=== PATIENT | male | born 1985 | race Caucasian/White ===

== ENCOUNTER 2022-07-15 21:07 | Emergency (ER) | payer OTHER, SELFPAY ==
[2022-07-15 21:16] VITALS: BP 143/91; PULSE 87; RESP 20; TEMP 37.1; O2SAT 96; BMI 28.1
[2022-07-15 22:03] LABS: Bacteria Urine Many (>30); Culture Indicated Urine Specimen Cultured; RBC Urine 0-1/HPF (0-5/HPF); Squamous Epithelial Cell Urine 0-1 /HPF (0-5/HPF); WBC Urine 30-100/HPF (0-5/HPF)
--- NOTE | 2022-07-16 00:07 | DI.CT.S_ITS ---
PROCEDURE: CT KIDNEY URETER BLADDER (KUB) INDICATIONS: Right flank pain TECHNIQUE: Axial sections were acquired from the lung bases to the pubic symphysis. Coronal and sagittal reformats were performed. For radiation dose reduction, the following was used: automated exposure control, adjustment of mA and/or kV according to patient size. COMPARISON: None. FINDINGS: Image quality: Excellent. Lung bases: Unremarkable. Heart: No significant findings. URINARY: Right Kidney: No stones or hydronephrosis. Right Ureter: No hydroureter. Left Kidney: No stones or hydronephrosis. Left Ureter: No hydroureter. Bladder: Normal wall thickness. No stones. ABDOMEN: Liver: Unremarkable. Gallbladder: Gallbladder is within normal limits. Biliary ducts: Unremarkable. Pancreas: Unremarkable. Spleen: Unremarkable. Adrenal Glands: Unremarkable. Stomach and Bowel: Stomach, small bowel loops, and colon are unremarkable. Appendix is visualized and is within normal limits. Peritoneum: No abnormal intraperitoneal fluid. No free air. Ventral Wall: No hernia. Abdominal Nodes: No enlarged retroperitoneal or mesenteric lymph nodes. Vessels: Aorta and inferior vena cava are normal in size. PELVIS: Pelvic Organs: Unremarkable. Pelvic Nodes: Unremarkable. Miscellaneous: No inguinal hernias are seen. Bones: No suspicious bony lesion. No acute vertebral body compression fracture. IMPRESSION: 1. No renal stones or hydronephrosis. No hydroureter. Normal appearing urinary bladder. 2. Normal appendix. No bowel obstruction or abnormal bowel wall thickening. No free fluid or free air. Dictated by: Daniel Dial M.D. on 07/16/2022 at 0:28 Approved by: Daniel Dial M.D. on 07/16/2022 at 0:32
--- NOTE | 2022-07-16 00:08 | ED.MALEGU ---
HPI - Male Genitourinary General Chief complaint: Urogenital-Male Stated complaint: thinks has a kidney infection Time Seen by Provider: 07/15/22 23:59 Source: patient Mode of arrival: Ambulatory History of Present Illness HPI Narrative: Patient complains of sudden right lower back flank pain that started Wednesday night and persisted until Wednesday morning. And nausea as well. Fever and chills tonight. Can not find a comfortable position. Has urinary frequency and urgency. No prior history of UTI or kidney stone. Patient in no distress at this time. Denies any urethral discharge. Patient is monogamous. no prior h/o std. Patient is scheduled with Dr. Guevara next month for vasectomy. He is not tried any medications for pain relief Related Data Previous Rx's Medication Instructions Recorded ibuprofen 800 mg tablet 800 mg PO Q8H PRN pain #20 tabs 07/16/22 phenazopyridine 100 mg tablet 100 mg PO TID PRN pain 6 doses #6 07/16/22 (Pyridium) tabs sulfamethoxazole 800 1 tab PO BID #14 tabs 07/16/22 mg-trimethoprim 160 mg tablet (Bactrim DS) Allergies Allergy/AdvReac Type Severity Reaction Status Date / Time amoxicillin Allergy Mild Hives Verified 07/15/22 21:23 Review of Systems Review of Systems Narrative: GENERAL: Positive chills, negative fatigue, malaise, positive fever, sweats. HEENT: Denies sinus pain, ear pain, sore throat RESPIRATORY: Denies dyspnea, cough CARDIOVASCULAR: Denies chest pain, palpitations GASTROINTESTINAL: positive nausea, negative vomiting, positive flank and abdominal pain : Positive dysuria, frequency, negative hematuria MUSCULOSKELETAL: denies muscle or bony pain SKIN: Denies rash, skin lesions NEUROLOGIC: Denies weakness, numbness ROS Unobtainable: All systems reviewed & are unremarkable except as noted in HPI and below Patient History Social History Smoking Status: Current every day smoker Smoking Status: Current every day smoker tobacco type: vaping alcohol intake frequency: holidays/special occasions only Substance Use Type: does not use Exam Narrative Exam Narrative: GENERAL: in no distress, not toxic not dyspneic HEAD: Normocephalic. EYES: Pupils equal round No scleral icterus. ENT: Mucous membranes moist. NECK: Trachea midline. CARDIOVASCULAR: Regular rate and rhythm without murmurs RESPIRATORY: Clear to auscultation. Breath sounds equal bilaterally. No wheezes, rales, or rhonchi. GASTROINTESTINAL: Abdomen soft, non-tender, no peritoneal signs bowel sounds present, no McBurney point tenderness EXTREMITIES: No gross deformities. BACK: No flank tenderness. NEURO: AOx4. SKIN: Warm and dry PSYCH: Not anxious, is cooperative Initial Vital Signs Initial Vital Signs: Vital Signs Temperature 98.7 F 07/15/22 21:16 Pulse Rate 87 07/15/22 21:16 Respiratory Rate 20 07/15/22 21:16 Blood Pressure 143/91 H 07/15/22 21:16 Pulse Oximetry 96 07/15/22 21:16 Oxygen Delivery Method 07/15/22 21:16 Course Course Course Narrative: No new issues during course of stay Orders Ordered: ED Orders 07/15/22 21:35 Chlamydia Gonorrhea PCR -URINE Stat Urine Culture Stat Urine Microscopic Stat 07/16/22 00:07 CT kidney ureter bladder (KUB) Stat 07/16/22 00:25 Complete Blood Count AUTO DIFF Stat Comprehensive Metabolic Panel Stat Discontinued Medications Sodium Chloride (Normal Saline 0.9%) 1,000 mls @ 1,000 mls/hr IV BOLUS ONE Stop: 07/16/22 01:06 Last Infusion: 07/16/22 01:06 Dose: 0 mls/hr Documented By: Admin: 07/16/22 00:18 Dose: 1,000 mls/hr Documented By: JOSEPHINE Ketorolac Tromethamine (Ketorolac 30 Mg/Ml Vial) 15 mg IV NOW ONE Stop: 07/16/22 00:08 Last Admin: 07/16/22 00:19 Dose: 15 mg Documented By: JOSEPHINE Ondansetron HCl (Ondansetron 4 Mg/2 Ml Inj) 4 mg IV NOW ONE Stop: 07/16/22 00:08 Last Admin: 07/16/22 00:19 Dose: 4 mg Documented By: JOSEPHINE Phenazopyridine HCl (Phenazopyridine 100 Mg Tablet) 100 mg PO NOW ONE Stop: 07/16/22 00:44 Last Admin: 07/16/22 00:58 Dose: 100 mg Documented By: JOSEPHINE Trimethoprim/Sulfamethoxazole (Trimeth/Sulfa 160/800 (Ds) Tablet) 1 tab PO NOW ONE Stop: 07/16/22 00:44 Last Admin: 07/16/22 00:58 Dose: 1 tab Documented By: JOSEPHINE Reevaluation(s) Reevaluation #1: Reviewed results with patient. At this time laboratory studies imaging are reassuring as well as physical exam. Toradol did help a little bit for the pain. Not toxic. Return precautions reviewed with patient. Agrees with treatment plan. GC chlamydia results are pending a may not return until tomorrow. We will call in prescriptions if abnormal. He agrees with treatment plan. Time: 00:53 Vital Signs Vital signs: Vital Signs - 8 hr 07/16/22 01:09 Pulse Rate 78 Respiratory Rate 14 Blood Pressure 137/74 Pulse Oximetry 98 Oxygen Delivery Method Room Air MDM - Male Genitourinary Differential Diagnosis Differential diagnosis: Likely urinary tract infection and urethritis Lab Data Result diagrams: 07/16/22 00:25 07/16/22 00:25 Labs: Lab Results 07/15/22 07/15/22 07/16/22 Range/Units 21:35 21:35 00:25 WBC 12.2 H (4.5-11.0) X10^3/uL RBC 5.01 (4.5-5.9) X10^6/uL Hgb 14.3 (13.5-17.5) g/dL Hct 44.1 (41-53) % MCV 87.9 (80-100) fL MCH 28.6 (26-34) PG MCHC 32.5 (30-36) % RDW 14.1 (11.6-14.8) % Plt Count 256 (150-400) X10^3/uL Neut % (Auto) 70.2 (50-75) % Lymph % (Auto) 16.3 L (25-40) % [place] % (Auto) 11.6 (3-14) % Eos % (Auto) 1.3 L (2-4) % Baso % (Auto) 0.6 (0-2) % Neut # (Auto) 8600 H (0970-5534) /uL Lymph # (Auto) 2000 (2716-9733) /uL [place] # (Auto) 1400 H (0-900) /uL Eos # (Auto) 200 (0-450) /uL Baso # (Auto) 100 (0-100) /uL Sodium (137-145) mmol/L Potassium (3.4-5.1) mmol/L Chloride (98-107) mmol/L Carbon Dioxide (22-32) mmol/L BUN (9-20) mg/dL Creatinine (0.66-1.25) mg/dL Estimated GFR (>60) mL/min BUN/Creatinine Ratio (6-22) Glucose (70-100) mg/dL Calcium (8.4-10.2) mg/dL Total Bilirubin (0.2-1.3) mg/dL AST (17-59) IU/L ALT (<50) IU/L Alkaline Phosphatase (38-126) U/L Total Protein (6.3-8.2) g/dL Albumin (3.5-5.0) g/dL Globulin (1.7-4.1) g/dL Albumin/Globulin Ratio (1.0-2.8) Urine RBC 0-1/hpf (0-5/HPF) Urine WBC 30-100/hpf H (0-5/HPF) Ur Squamous Epith Cells 0-1 /hpf (0-5/HPF) Urine Bacteria Many (>30) H (None) Ur Culture Indicated? Specimen cultured Ur Chlamydia DNA (PCR) Not detected N gonorrhoeae DNA (PCR) Not detected 07/16/22 Range/Units 00:25 WBC (4.5-11.0) X10^3/uL RBC (4.5-5.9) X10^6/uL Hgb (13.5-17.5) g/dL Hct (41-53) % MCV (80-100) fL MCH (26-34) PG MCHC (30-36) % RDW (11.6-14.8) % Plt Count (150-400) X10^3/uL Neut % (Auto) (50-75) % Lymph % (Auto) (25-40) % [place] % (Auto) (3-14) % Eos % (Auto) (2-4) % Baso % (Auto) (0-2) % Neut # (Auto) (8509-3099) /uL Lymph # (Auto) (0377-9187) /uL [place] # (Auto) (0-900) /uL Eos # (Auto) (0-450) /uL Baso # (Auto) (0-100) /uL Sodium 139 (137-145) mmol/L Potassium 4.5 (3.4-5.1) mmol/L Chloride 101 (98-107) mmol/L Carbon Dioxide 29 (22-32) mmol/L BUN 14 (9-20) mg/dL Creatinine 1.02 (0.66-1.25) mg/dL Estimated GFR > 60 (>60) mL/min BUN/Creatinine Ratio 13.7 (6-22) Glucose 99 (70-100) mg/dL Calcium 9.0 (8.4-10.2) mg/dL Total Bilirubin 0.6 (0.2-1.3) mg/dL AST 26 (17-59) IU/L ALT 46 (<50) IU/L Alkaline Phosphatase 65 (38-126) U/L Total Protein 7.5 (6.3-8.2) g/dL Albumin 4.3 (3.5-5.0) g/dL Globulin 3.2 (1.7-4.1) g/dL Albumin/Globulin Ratio 1.3 (1.0-2.8) Urine RBC (0-5/HPF) Urine WBC (0-5/HPF) Ur Squamous Epith Cells (0-5/HPF) Urine Bacteria (None) Ur Culture Indicated? Ur Chlamydia DNA (PCR) N gonorrhoeae DNA (PCR) Urine Dip Bedside Urine Glucose Negative Bedside Urine Bilirubin - Negative Bedside Urine Ketone - Negative Urine Specific [place] 1.025 Bedside Urine Occult Blood +++ Bedside Urine pH 6.0 Bedside Urine Protein ++ 100 Bedside Urine Urobilinogen - Negative Bedside Urine Nitrite - Negative Bedside Urine Leukocytes + [address] scan - abdomen/pelvis: Radiologist's Impression: [address] [address] [address] Scan Report Signed Patient: Nayan Pierson MR#: [id number] : 1985 Acct:[id number] Age/Sex: 36 / M Date of Service: 07/16/22 Loc: Accession Number: [id number] ?? Procedure: CT kidney ureter bladder (KUB) Ordering Provider: Antonio Jason MD PROCEDURE:? CT KIDNEY URETER BLADDER (KUB) ? INDICATIONS:? Right flank pain ? TECHNIQUE:? Axial sections were acquired from the lung bases to the pubic symphysis.? Coronal and sagittal reformats were performed.? For radiation dose reduction, the following was used: ?automated exposure control, adjustment of mA and/or kV according to patient size.? ? COMPARISON:? None. ? FINDINGS:? Image quality:? Excellent.? ? Lung bases:? Unremarkable.? ? Heart:? No significant findings. ? URINARY: Right Kidney:? No stones or hydronephrosis. Right Ureter:? No hydroureter. ? Left Kidney:? No stones or hydronephrosis.? Left Ureter:? No hydroureter. ? Bladder:? Normal wall thickness. No stones. ? ? ? ABDOMEN: Liver:? Unremarkable.? ? Gallbladder:? Gallbladder is within normal limits. Biliary ducts:? Unremarkable.? ? Pancreas:? Unremarkable.? ? Spleen:? Unremarkable.? ? Adrenal Glands:? Unremarkable.? ? ? Stomach and Bowel:? Stomach, small bowel loops, and colon are unremarkable.? Appendix is visualized and is within normal limits. Peritoneum:? No abnormal intraperitoneal fluid.? No free air.? ? Ventral Wall: ? No hernia.? Abdominal Nodes:? No enlarged retroperitoneal or mesenteric lymph nodes.? Vessels:? Aorta and inferior vena cava are normal in size.? ? PELVIS: Pelvic Organs:? Unremarkable.? ? Pelvic Nodes: Unremarkable. Miscellaneous: No inguinal hernias are seen. ? ? ? Bones:? No suspicious bony lesion.? No acute vertebral body compression fracture. ? IMPRESSION:? ? 1. No renal stones or hydronephrosis.? No hydroureter.? Normal appearing urinary bladder. ? 2. Normal appendix.? No bowel obstruction or abnormal bowel wall thickening.? No free fluid or free air. ? ? ? Dictated by: Daniel Dial M.D. on 07/16/2022 at 0:28 ? ? Approved by: Daniel Dial M.D. on 07/16/2022 at 0:32 ? MDM Narrative Medical decision making narrative: Appropriate for discharge home. Treated clinically for UTI. CT no evidence of pyelonephritis. GC chlamydia urinalysis is pending. Patient agrees to start with antibiotics here. Will add any antibiotics if needed if abnormal GC chlamydia results. Patient scheduled for vasectomy with Dr. Guevara next month. Referral will be given to patient for current UTI. Also primary care referral line. Return precautions reviewed with him. Not toxic at discharge. He desires discharge home Discharge Plan Departure Patient Disposition: Home Clinical Impression: Urinary tract infection Instructions: DI for Urinary Tract Infection (UTI) Activity Restrictions/Additional Instructions: Keep well hydrated. Return if worse if any questions or concerns. Prescription for antibiotic as well as Pyridium and ibuprofen has been sent to your [facility] pharmacy in [place]. Please call Dr. Guevara's office in the morning for recheck. Call provided primary care referral phone number to establish family doctor. Call [phone]. Prescriptions: New ibuprofen 800 mg tablet 800 mg PO Q8H PRN (Reason: pain) Qty: 20 0RF phenazopyridine [Pyridium] 100 mg tablet 100 mg PO TID PRN (Reason: pain) Qty: 6 0RF sulfamethoxazole-trimethoprim [Bactrim DS] 800-160 mg tablet 1 tab PO BID Qty: 14 0RF Referrals: Alex Guevara MD [Physician] - Provider,Ron TAYLOR [Primary Care Provider] - Visit Report Forms: Patient Portal/API
[2022-07-16] MEDS: SODIUM CHLORIDE 0.9% 1,000 ML 1000 ML IV (00:18)
[2022-07-16] MEDS: KETOROLAC 30 MG/ML VIAL 15 MG IV (00:19)
[2022-07-16] MEDS: ONDANSETRON 4 MG/2 ML INJ IV (00:19)
[2022-07-16 00:36] LABS: Add Manual Diff / Slide Review NO; Basophils Absolute Auto 100 /uL (0-100); Basophils Percent Auto 0.6 % (0-2); Eosinophils Absolute Auto 200 /uL (0-450); Eosinophils Percent Auto 1.3 % (2-4); Hematocrit 44.1 % (41-53); Hemoglobin 14.3 g/dL (13.5-17.5); Lymphocytes Absolute Auto 2000 /uL (1100-4500); Lymphocytes Percent Auto 16.3 % (25-40); Mean Corpuscular HGB Conc 32.5 % (30-36); Mean Corpuscular Hemoglobin 28.6 PG (26-34); Mean Corpuscular Volume 87.9 fL (80-100); Monocytes Absolute Auto 1400 /uL (0-900); Monocytes Percent Auto 11.6 % (3-14); Neutrophils Absolute Auto 8600 /uL (1500-7000); Neutrophils Percent Auto 70.2 % (50-75); Platelet Count 256 X10^3/uL (150-400); Red Blood Cell Count 5.01 X10^6/uL (4.5-5.9); Red Cell Distribution Width 14.1 % (11.6-14.8); White Blood Cell Count 12.2 X10^3/uL (4.5-11.0)
[2022-07-16 00:45] LABS: Alanine Aminotransferase 46 IU/L (<50); Albumin 4.3 g/dL (3.5-5.0); Albumin Globulin Ratio 1.3 (1.0-2.8); Alkaline Phosphatase 65 U/L (38-126); Aspartate Aminotransferase 26 IU/L (17-59); BUN Creatinine Ratio 13.7 (6-22); Bilirubin Total 0.6 mg/dL (0.2-1.3); Blood Urea Nitrogen 14 mg/dL (9-20); Carbon Dioxide 29 mmol/L (22-32); Chloride 101 mmol/L (98-107); Estimated Glomerular Filt Rate > 60 mL/min (>60); Globulin 3.2 g/dL (1.7-4.1); Glucose 99 mg/dL (70-100); HEMOLYSIS 35 (0-50); Potassium 4.5 mmol/L (3.4-5.1); Sodium 139 mmol/L (137-145); Total Protein 7.5 g/dL (6.3-8.2)
[2022-07-16] MEDS: PHENAZOPYRIDINE 100 MG TABLET PO (00:58)
[2022-07-16] MEDS: TRIMETH/SULFA 160/800 (DS) TABLET 1 TAB PO (00:58)
[2022-07-16 01:09] VITALS: BP 137/74; PULSE 78; RESP 14; O2SAT 98
[2022-07-16 02:17] LABS: Urine N gonorrhoeae NOT DETECTED
[2022-07-16 02:53] LABS: Urine Chlamydia NOT DETECTED
== END 2022-07-16 01:10 | disposition home or self-care (01) ==
PROVIDERS: Emergency Provider Emergency Medicine
DX: N39.0 Urinary tract infection, site not specified (principal)
CPT/HCPCS: 74176; 80053; 81003; 81015; 85025; 87077; 87086; 87186; 87491; 87591; 96361; 96374; 96375; 99284; J1885; J2405

== ENCOUNTER 2022-07-20 16:12 | Emergency (ER) | payer OTHER, SELFPAY ==
[2022-07-20 16:40] VITALS: BP 167/84; PULSE 100; RESP 19; TEMP 36.3; O2SAT 99; BMI 28.1
--- NOTE | 2022-07-20 18:19 | ED_ITS ---
HPI - General Adult General Chief complaint: Abdominal Pain Stated complaint: Stomach issues, Fever Time Seen by Provider: 07/20/22 17:55 Source: patient Mode of arrival: Ambulatory Limitations: no limitations History of Present Illness HPI narrative: 36-year-old male was seen here in the emergency department just a few days ago and diagnosed with a urinary tract infection. He was placed on antibiotics. He states those symptoms have resolved. A urine culture from that visit does show a pansensitive E coli. He was placed on Bactrim. Further discussion of this patient did admit to having anal intercourse with his girlfriend which is most likely the cause patient's symptoms. He returns emergency department today because he now has bilateral lower abdominal discomfort. This is different than what he had during his last visit. He also sees a has had a fever. Nausea but no vomiting. No urinary symptoms also describes a headache. Related Data Previous Rx's Medication Instructions Recorded ibuprofen 800 mg tablet 800 mg PO Q8H PRN pain #20 tabs 07/16/22 phenazopyridine 100 mg tablet 100 mg PO TID PRN pain 6 doses #6 07/16/22 (Pyridium) tabs sulfamethoxazole 800 1 tab PO BID #14 tabs 07/16/22 mg-trimethoprim 160 mg tablet (Bactrim DS) Allergies Allergy/AdvReac Type Severity Reaction Status Date / Time amoxicillin Allergy Mild Hives Verified 07/15/22 21:23 Review of Systems Review of Systems ROS Unobtainable: All systems reviewed & are unremarkable except as noted in HPI and below Patient History Medical History Urinary tract infection Social History Smoking Status: Current every day smoker Smoking Status: Current every day smoker tobacco type: vaping alcohol intake frequency: holidays/special occasions only Substance Use Type: does not use Exam Initial Vital Signs Initial Vital Signs: Vital Signs Temperature 97.3 F L 07/20/22 16:40 Pulse Rate 100 H 07/20/22 16:40 Respiratory Rate 19 07/20/22 16:40 Blood Pressure 167/84 H 07/20/22 16:40 Pulse Oximetry 99 07/20/22 16:40 Oxygen Delivery Method 07/20/22 16:40 HENIA Head: normal to inspection and normocephalic Resp Effort & Inspection: normal respiratory effort Cardio Rate: regular rate GI Inspection: non-distended Palpation: firm, guarding, No rigid and tender (Lower abdomen) Back/Spine/Pelvis Back: No CVA tenderness Skin General: no rashes or lesions noted Neuro General: patient alert, patient awake and moves all extremities Extrem General: normal to inspection and capillary refill normal Psych Appearance: grossly normal and well kempt Course Orders Ordered: ED Orders 07/20/22 18:20 CT abdomen pelvis w con Stat 07/20/22 18:30 Complete Blood Count AUTO DIFF Stat 07/20/22 20:00 Comprehensive Metabolic Panel Stat Lipase Stat Discontinued Medications Sodium Chloride (Normal Saline 0.9%) 1,000 mls @ 1,000 mls/hr IV BOLUS ONE Stop: 07/20/22 19:19 Last Infusion: 07/20/22 20:57 Dose: 0 mls/hr Documented By: Admin: 07/20/22 18:51 Dose: 1,000 mls/hr Documented By: FELISHA Ketorolac Tromethamine (Ketorolac 30 Mg/Ml Vial) 30 mg IV NOW ONE Stop: 07/20/22 19:58 Last Admin: 07/20/22 20:05 Dose: 30 mg Documented By: ROSY Morphine Sulfate (Morphine 4 Mg/Ml Inj) 4 mg IV NOW ONE Stop: 07/20/22 18:21 Last Admin: 07/20/22 18:50 Dose: 4 mg Documented By: FELISHA Vital Signs Vital signs: Vital Signs - 8 hr 07/20/22 21:06 07/20/22 21:07 07/20/22 21:07 Pulse Rate 98 H Blood Pressure 136/68 Pulse Oximetry 94 95 Medical Decision Making Medical Records Medical records reviewed: Yes I reviewed the patient's medical records. Lab Data Lab results reviewed: Yes I reviewed the patient's lab results. Result diagrams: 07/20/22 18:30 07/20/22 20:00 Labs: Lab Results 07/20/22 07/20/22 Range/Units 18:30 20:00 WBC 13.8 H (4.5-11.0) X10^3/uL RBC 5.00 (4.5-5.9) X10^6/uL Hgb 14.3 (13.5-17.5) g/dL Hct 43.1 (41-53) % MCV 86.2 (80-100) fL MCH 28.7 (26-34) PG MCHC 33.2 (30-36) % RDW 13.7 (11.6-14.8) % Plt Count 259 (150-400) X10^3/uL Neut % (Auto) 74.9 (50-75) % Lymph % (Auto) 13.2 L (25-40) % [place] % (Auto) 11.0 (3-14) % Eos % (Auto) 0.5 L (2-4) % Baso % (Auto) 0.4 (0-2) % Neut # (Auto) 67511 H (4924-2274) /uL Lymph # (Auto) 1800 (1101-1343) /uL [place] # (Auto) 1500 H (0-900) /uL Eos # (Auto) 100 (0-450) /uL Baso # (Auto) 100 (0-100) /uL Sodium 135 L (137-145) mmol/L Potassium 4.0 (3.4-5.1) mmol/L Chloride 100 (98-107) mmol/L Carbon Dioxide 26 (22-32) mmol/L BUN 8 L (9-20) mg/dL Creatinine 1.17 (0.66-1.25) mg/dL Estimated GFR > 60 (>60) mL/min BUN/Creatinine Ratio 6.8 (6-22) Glucose 96 (70-100) mg/dL Calcium 8.6 (8.4-10.2) mg/dL Total Bilirubin 0.7 (0.2-1.3) mg/dL AST 17 (17-59) IU/L ALT 27 (<50) IU/L Alkaline Phosphatase 59 (38-126) U/L Total Protein 7.0 (6.3-8.2) g/dL Albumin 4.0 (3.5-5.0) g/dL Globulin 3.0 (1.7-4.1) g/dL Albumin/Globulin Ratio 1.3 (1.0-2.8) Lipase 78 (23-300) U/L Urine Dip Bedside Urine Glucose Negative Bedside Urine Bilirubin - Negative Bedside Urine Ketone - Negative Urine Specific [place] 1.01 Bedside Urine Occult Blood - Negative Bedside Urine pH 6.5 Bedside Urine Protein - Negative Bedside Urine Urobilinogen - Negative Bedside Urine Nitrite - Negative Bedside Urine Leukocytes - Negative Esterase Point of care testing: Urine Dip Bedside Urine Glucose Negative Bedside Urine Bilirubin - Negative Bedside Urine Ketone - Negative Urine Specific [place] 1.01 Bedside Urine Occult Blood - Negative Bedside Urine pH 6.5 Bedside Urine Protein - Negative Bedside Urine Urobilinogen - Negative Bedside Urine Nitrite - Negative Bedside Urine Leukocytes - Negative Esterase Imaging Data CT scan - abdomen/pelvis: Radiologist's Impression: [address] [address] XRay Report Signed Patient: Ibeth Cerna MR#: [id number] : 02/02/2017 Acct:[id number] Age/Sex: 5Y 05M / F Date of Service: 07/20/22 Loc: ED Accession Number: [id number] ?? Procedure: XR chest 2V Ordering Provider: Leonid Mann D.O. PROCEDURE:? XR CHEST 2V ? INDICATIONS:? hypoxia with RSV positive ? TECHNIQUE:? 2 views of the chest were acquired.? ? COMPARISON:? None. ? FINDINGS:? ? Surgical changes and devices:? None.? ? Lungs and pleura:? There is bilateral perihilar bronchial wall thickening consistent with bronchiolitis.? No focal consolidation.? No pleural effusions or pneumothorax.? ? Mediastinum:? Mediastinal contours are normal.? Heart size is normal.? ? Bones and chest wall:? No suspicious bony abnormalities.? Soft tissues appear unremarkable.? ? IMPRESSION:? ? 1. Bilateral bronchial wall thickening consistent with bronchiolitis.? ? ? Dictated by: Yordy Noriega M.D. on 07/20/2022 at 22:46 ? ? Approved by: Yordy Noriega M.D. on 07/20/2022 at 22:48? MDM Narrative Medical decision making narrative: Symptoms that he presents with a are new compared to a couple days ago. His vital signs are unremarkable but he does have a firm abdomen with generalized tenderness specifically in the lower portion. CT scan obtained which shows colitis. I did discuss this with him. There is no indication for surgical cons ultation. He is not having diarrhea. We did discuss that this potentially could be a completely unrelated issue to couple days ago or potentially have an colitis secondary to the antibiotics that he was on. There is no indication for a new course of antibiotics. With the [place] and he was given strict return precautions. He expressed understanding and agreement. Discharge Plan Departure Patient Disposition: Home Clinical Impression: Colitis Instructions: DI for Colitis Activity Restrictions/Additional Instructions: I do recommend a bland diet for the next couple days and advance it as tolerated. Contact your medical department for follow-up. Return to the emergency department for any new or worsening symptoms. Prescriptions: No Action ibuprofen 800 mg tablet 800 mg PO Q8H PRN (Reason: pain) Qty: 20 0RF phenazopyridine [Pyridium] 100 mg tablet 100 mg PO TID PRN (Reason: pain) Qty: 6 0RF sulfamethoxazole-trimethoprim [Bactrim DS] 800-160 mg tablet 1 tab PO BID Qty: 14 0RF Referrals: ProviderRon [Primary Care Provider] - Visit Report Forms: Patient Portal/API
--- NOTE | 2022-07-20 18:20 | DI.CT.S_ITS ---
PROCEDURE: CT ABDOMEN PELVIS W CON INDICATIONS: Right lower quadrant abdominal pain TECHNIQUE: After the administration of intravenous contrast, axial sections acquired from the lung bases to the pubic symphysis. Coronal and sagittal reformats were performed. For radiation dose reduction, the following was used: automated exposure control, adjustment of mA and/or kV according to patient size. COMPARISON: None. FINDINGS: Image quality: Excellent. Lung bases: Unremarkable. Heart: No significant findings. ABDOMEN: Liver: Unremarkable. Gallbladder: Unremarkable. Biliary ducts: Unremarkable. Pancreas: Unremarkable. Spleen: Unremarkable. Adrenal Glands: Unremarkable. Kidneys and Ureters: Unremarkable. Stomach and Bowel: There is no bowel obstruction. No gross gastric or small bowel wall thickening. Appendix is visualized in right lower quadrant and is within normal limits. There is mild diffuse colonic wall thickening and edema particularly involving mid to distal transverse colon and splenic flexure with significant pericolonic fat stranding. No abscess collection. Peritoneum: No abnormal intraperitoneal fluid. No free air. Ventral Wall: No hernias. Abdominal Nodes: No retroperitoneal or mesenteric adenopathy by size criteria. Vessels: Aorta and inferior vena cava are normal in size. PELVIS: Pelvic Organs: Unremarkable. Bladder: Unremarkable. Pelvic Nodes: No enlarged lymph nodes. Miscellaneous: No hernias are seen. Bones: No suspicious bony lesion. No acute vertebral body compression fracture. IMPRESSION: 1. Finding is suggestive of infectious inflammatory colitis involving ascending colon and transverse colon particularly in mid to distal transverse colon and splenic flexure. No abscess collection. No free fluid or free air. 2. Normal appendix. No bowel obstruction. Dictated by: Daniel Dial M.D. on 07/20/2022 at 19:01 Approved by: Daniel Dial M.D. on 07/20/2022 at 19:03
[2022-07-20 18:45] LABS: Add Manual Diff / Slide Review NO; Basophils Absolute Auto 100 /uL (0-100); Basophils Percent Auto 0.4 % (0-2); Eosinophils Absolute Auto 100 /uL (0-450); Eosinophils Percent Auto 0.5 % (2-4); Hematocrit 43.1 % (41-53); Hemoglobin 14.3 g/dL (13.5-17.5); Lymphocytes Absolute Auto 1800 /uL (1100-4500); Lymphocytes Percent Auto 13.2 % (25-40); Mean Corpuscular HGB Conc 33.2 % (30-36); Mean Corpuscular Hemoglobin 28.7 PG (26-34); Mean Corpuscular Volume 86.2 fL (80-100); Monocytes Absolute Auto 1500 /uL (0-900); Neutrophils Absolute Auto 10300 /uL (1500-7000); Neutrophils Percent Auto 74.9 % (50-75); Platelet Count 259 X10^3/uL (150-400); Red Cell Distribution Width 13.7 % (11.6-14.8); White Blood Cell Count 13.8 X10^3/uL (4.5-11.0)
[2022-07-20] MEDS: MORPHINE 4 MG/ML INJ IV (18:50)
[2022-07-20] MEDS: SODIUM CHLORIDE 0.9% 1,000 ML 1000 ML IV (18:51)
[2022-07-20] MEDS: KETOROLAC 30 MG/ML VIAL IV (20:05)
[2022-07-20 20:23] LABS: Alanine Aminotransferase 27 IU/L (<50); Albumin Globulin Ratio 1.3 (1.0-2.8); Alkaline Phosphatase 59 U/L (38-126); Aspartate Aminotransferase 17 IU/L (17-59); BUN Creatinine Ratio 6.8 (6-22); Bilirubin Total 0.7 mg/dL (0.2-1.3); Blood Urea Nitrogen 8 mg/dL (9-20); Calcium 8.6 mg/dL (8.4-10.2); Carbon Dioxide 26 mmol/L (22-32); Chloride 100 mmol/L (98-107); Estimated Glomerular Filt Rate > 60 mL/min (>60); Glucose 96 mg/dL (70-100); HEMOLYSIS < 15 (0-50); Lipase 78 U/L (23-300); Sodium 135 mmol/L (137-145)
[2022-07-20 21:06] VITALS: O2SAT 94
[2022-07-20 21:07] VITALS: BP 136/68; PULSE 98; O2SAT 95
== END 2022-07-20 21:10 | disposition home or self-care (01) ==
PROVIDERS: Emergency Provider Emergency Medicine
DX: K52.9 Noninfective gastroenteritis and colitis, unspecified (principal)
CPT/HCPCS: 36415; 74177; 80053; 81003; 83690; 85025; 96361; 96374; 96375; 99284; J1885; J2270; Q9967

== ENCOUNTER → 2022-11-10 12:31 | Outpatient (CLI) | payer OTHER, SELFPAY ==
[2022-11-10 12:40] LABS: Semen Sperm Prescence Post-Vas Absent (ABSENT)
== END ==
PROVIDERS: Referring Provider Specialist; Visit Provider Specialist
DX: Z98.52 Vasectomy status (principal)
CPT/HCPCS: 89321